=== PATIENT | female | born 1965 | race Caucasian/White ===

== ENCOUNTER 2019-02-20 21:51 | Inpatient (IN) | payer OTHER ==
[2019-02-20 22:06] LABS: ABG Base Excess 0.5 mmol/L; ABG HCO3 25 mmol/L (21-25); ABG Oxygen Saturation 99.5 % (94-97); ABG PCO2 40 mmHg (35-45); ABG PH 7.41 (7.35-7.45); ABG PO2 162 mmHg (83-108); ABG TCO2 26 mmol/L (19-24)
--- NOTE | 2019-02-20 22:21 | P.CNPUL ---
History of Present Illness Consult date: 02/20/19 Reason for consult: dyspnea History of present illness: This is a 53-year-old female patient who was sent over from [facility] emergency department because of respiratory failure. The patient has not seen a physician on a regular basis. She has not had adequate follow-up. She is morbidly obese. She had some increased cough and congestion and she has to bouts of hemoptysis over the past 3 days. She was getting progressively more short of breath and dyspneic and she had also developed increased lower extremity edema. She thought that she may have a fever however this was a subjective fever and it was never documented. No headache. No syncope. No angina. No loss in consciousness. She end up presented herself to the emergency department at the [facility] and she was found to be in a flutter with 2-1 conduction block and heart rate of 160. She was in acute hypoxic respiratory failure. Immediately she was placed on a BiPAP at a pressure of 10/5 cm a full 10. Initially chest x-ray was done that showed CHF with bila teral pleural effusion. This was followed up by CT angiogram of the chest that showed no evidence of any pulmonary embolism. There was bilateral pleural effusion right more than left. There was right midlung atelectasis. There was also complete atelectasis of the right middle lobe and the right lower lobe in addition to cardiomegaly and pulmonary vessel congestion and pulmonary arterial hypertension with septal lines and anasarca type of changes. There was obvious changes consistent with fluid overload and evolving pulmonary edema. The patient was given DuoNeb nebulized treatment. She was given a 10 mg bolus of IV Cardizem and she was placed on 50 mg an hour infusion. Following that she was given 125 mg of Solu-Medrol and she was transferred to [facility] for further evaluation and treatment. Her blood work was noted. The BNP level was elevated in the order of 1500. Her BN was 10 and creatinine of 0.7. INR was 1.4 with a PT of 17.4 and a PTT of 32. Her white cell count at 16.5 with a hemoglobin of 17.1 and platelets of 305. The patient's sodium is at 133. K level is at 4.5. The calcium level is at 8.9. Bilirubin is 1.6. Alkaline phosphatase is 239. First set of cardiac enzyme/troponin was negative. Lactic acid level was at 3.2. Upon further questioning, the patient states that she has not seen a physician on a regular basis. She denies having any history of COPD or asthma. She is a lifetime nonsmoker. Most of any congestion heart failure. [place] No DVTs or pulmonary embolism. No history of any previous respiratory failure. She has had a few bouts of pneumonia as an outpatient basis and they're all treated without any complications. No history of any cardiac disease. She doesn't take any medication on a regular basis. I saw this patient in the ED. She was on a BiPAP. I modified the pressure to a pressure of 14/5 cm of water. I also put an FiO2 of 60%. A blood gas was done and the patient had a pH of 7.4 with a pCO2 of 40 and pO2 162. Reviewed the CAT scan of the chest. Reviewed the chest x-ray that was forwarded from [facility]. The patient is quite short of breath. She has diffuse anasarca with extensive swelling in lower extremities bilaterally. Denies having any chest pain. Her heart is tachycardic despite being on a Cardizem drip at 10 mg an hour. Review of Systems Constitutional: Reports daytime sleepiness, Reports fatigue, Reports fever, Reports weakness, Reports weight gain Eyes: denies as per HPI, denies blurred vision, denies bulging eye, denies decreased vision, denies diplopia, denies discharge, denies dry eye, denies irritation, denies itching, denies pain, denies photophobia, denies loss of peripheral vision, denies loss of vision, denies tunnel vision/blind spots Ears: deny: decreased hearing, ear discharge, earache, tinnitus Ears, nose, mouth and throat: Denies headache, Denies sore throat Breasts: absent: as per HPI, change in shape, gynecomastia, masses, nipple discharge, pain, skin changes, swelling Cardiovascular: Reports decreased exercise tolerance, Reports dyspnea on exertion, Reports edema, Reports shortness of breath Respiratory: Reports cough, Reports cough with sputum, Reports dyspnea, Reports excessive sputum, Reports hemoptysis, Reports wheezing Gastrointestinal: Denies abdominal pain, Denies diarrhea, Denies nausea, Denies vomiting Genitourinary: Denies dysuria, Denies hematuria Menstruation: Reports as per HPI Musculoskeletal: Reports as per HPI Musculoskeletal: bilateral: ankle swelling, absent: ankle pain, ankle stiffness Integumentary: Reports as per HPI Neurological: Denies numbness, Denies weakness Psychiatric: Reports as per HPI Endocrine: Reports as per HPI, Reports fatigue Hematologic/Lymphatic: Reports as per HPI Allergic/Immunologic: Reports as per HPI Past Medical History Past Surgical History: Section, Tonsillectomy Physical Exam Morbidly obese, in [id number] degree of respiratory distress even while on the BiPAP. Head exam was generally normal. There was no scleral icterus or corneal arcus. Mucous membranes were moist. Neck was supple and without jugular venous distension, thyromegaly, or carotid bruits. Carotids were easily palpable bilaterally. There was no adenopathy. Patient has dry mucous membranes and the patient has significant crowding of the posterior oropharynx with a Mallampati class IV. Lung sounds are diminished bilaterally along with left basilar crackles and diffuse rhonchi throughout the lung egan and diffuse extremity wheezes heard throughout the lung egan bilaterally. Heart sounds are tachycardic, irregular, positive S1-S2. No significant murmurs appreciated. Abdomen is morbidly obese. No direct tenderness months or guarding. No ascites that can be palpated. Abdominal exam revealed normal bowel sounds. The abdomen was soft, non-tender, and without masses, organomegaly, or appreciable enlargement of the abdominal aorta. Extremities revealed +1-2 pitting edema. No cyanosis. No clubbing. Neurologic the patient is awake and alert. Although she is anxious but there is no focal neurological deficit. No cranial nerve deficits. She is moving all 4 extremities without any limitation. Examination of the skin revealed no evidence of significant rashes, suspicious appearing nevi or other concerning lesions. Results - Diagnostic Findings Chest x-ray: image reviewed CT scan - chest: image reviewed Assessment and Plan Plan: Assessment 1 acute hypoxic respiratory failure, multifactorial. The patient presents with a left lower lobe pneumonia and signs of decompensated heart failure with bilateral pleural effusion right more than left and early pulmonary edema. In addition, the patient is in a flutter with rapid ventricular response 2 acute BiPAP dependent history failure currently on a pressure of 14/5 cm of water and FiO2 of 60% 3 left lower lobe pneumonia 4 acute decompensated heart failure with bilateral pleural effusions and signs of early pulmonary edema 5 a flutter with rapid response. The patient presents with 2-1 AV block 6 obesity 7 anesthetic with increased lower extremity edema, most likely secondary to CHF. Underlying DVT is felt to be less likely Plan We will admit this patient ICU. Continue BiPAP for respiratory support. Wean down the FiO2 to maintain saturation above 90%. Start the patient on DuoNeb nebulizers [id number]. Start the patient IV Solu Medrol 60 mg every 6 hours. We'll put her on a combination of Levaquin and Zosyn. Influenza screen that was done was negative. Obtain sputum Gram stain and culture. Obtain blood cultures. Obtain an echocardiogram. Start the patient on Lasix 40 mg IV push every 8 hours. Insert a Wilson catheter. The patient will need additional treatment for rate control. The patient is currently on 10 mg of Cardizem and she continues to be in a flutter rhythm. We'll consider amiodarone if there is no significant improvement or any rate control. Start the patient IV heparin per protocol. Continue monitoring cardiac enzymes. Sent thyroid function test. Keep the BiPAP overnight at the same setting. Condition is critical. IV access has been established. The patient be transferred to the intensive care unit. Further recommendations are to follow based on her progress. She will need a cardiology consultation. Time with Patient: Greater than 30
[2019-02-20] MEDS ORDERED: NALOXONE 0.4 MG/ML 1 ML VIAL IV PRN (22:39)
[2019-02-20] MEDS ORDERED: HEPARIN SODIUM,PORCINE 5,000 UNIT/ML 1 ML VIAL IV ONE (22:43)
[2019-02-20] MEDS ORDERED: HEPARIN SODIUM,PORCINE 5,000 UNIT/ML 1 ML VIAL IV PRN (22:43)
[2019-02-20] MEDS ORDERED: HEPARIN SOD,PORK IN 0.45% NACL 25,000 UNIT in 0.45% NACL 1 250ML.BAG IV SCH (22:45)
[2019-02-20] MEDS ORDERED: LEVOFLOXACIN 500MG-D5W PMX 500 MG in DEXTROSE/WATER 1 100ML.BAG IVPB STA (22:49)
--- NOTE | 2019-02-20 22:50 | ED ---
General Adult HPI - General Chief complaint: Shortness of Breath Stated complaint: pneumonia Time Seen by Provider: 02/20/19 21:57 Source: patient, family Mode of arrival: EMS Limitations: no limitations - History of Present Illness Initial comments: Abbie is a 53-year-old female with no significant past medical history because she does not follow with primary care physician and has not been seen by physician and nonbloody number of years. Patient reports she's had a mild cough today she no shoes coughing up some blood which prompted her to go to an outside hospital where she was found to be in A. fib with RVR and respiratory distress. At the outside facility revealed a possible pneumonia as well as heart failure with bilateral pleural effusions patient was found to be in A. fib with RVR and upon being given Cardizem was noted to be in a flutter with a 21 block and a heart rate in the 150s. Patient was treated with fluids, Cardizem, broad spectrum antibiotics - decision was made to hold Heparin due to patients report of hemoptysis. - Related Data Home Medications Medication Instructions Recorded Confirmed No Known Home Medications 02/20/19 02/20/19 Allergies Allergy/AdvReac Type Severity Reaction Status Date / Time bee venom protein (honey bee) Allergy Unknown Verified 02/20/19 23:06 latex Allergy Unknown Verified 02/20/19 23:06 Penicillins Allergy Rash/Hives Verified 02/20/19 23:06 codeine AdvReac Unknown Verified 02/20/19 23:06 Review of Systems ROS Statement: Those systems with pertinent positive or pertinent negative responses have been documented in the HPI. ROS Other: All systems not noted in ROS Statement are negative. Past Medical History Past Medical History: No Reported History History of Any Multi-Drug Resistant Organisms: None Reported Past Surgical History: Appendectomy, Section, Tonsillectomy Past Psychological History: No Psychological Hx Reported Smoking Status: Never smoker Past Alcohol Use History: None Reported Past Drug Use History: None Reported General Exam - General Exam Comments Initial Comments: Physical Exam GENERAL: The obese female in moderate respiratory distress on BiPAP HENT: Normocephalic, Atraumatic. EYES: PERRL, EOMI PULMONARY: Tachypneic, rales bilaterally Decreased breath sounds at bilateral bases CARDIOVASCULAR: Cardiac, regular rate is fixed at 150 ABDOMEN: Morbidly obese soft and nontender SKIN: Skin is clear with no lesions or rashes and otherwise unremarkable. : Deferred NEUROLOGIC: Patient is alert and oriented x3. Moving all extremities spontaneously MUSCULOSKELETAL: Normal extremities with adequate strength and full range of motion. No lower extremity swelling or edema. No calf tenderness. PSYCHIATRIC: Normal psychiatric evaluation. Limitations: no limitations Limitations: no limitations Course Vital Signs 02/20/19 02/20/19 02/21/19 21:57 22:29 00:04 Pulse Rate 151 H 149 H Respiratory 35 H 33 H 25 H Rate Blood Pressure 149/101 146/100 O2 Sat by Pulse 99 98 Oximetry EKG Findings - EKG Comments: EKG Findings:: EKG obtained at 2217, rate is 150 rhythm is atrial flutter with a 2-1 AV conduction, there is normal axis there are normal intervals, QRS 84, QTC [address] elevations or depressions evidence of acute ischemia or infarction Medical Decision Making - Medical Decision Making She care was discussed with the transferring physician. Some morbidly obese 53-year-old female who does not follow with a doctor presenting with atrial flutter and a 2-1 block, acute heart failure respiratory distress and likely pneumonia Patient was on BiPAP and transferred to our facility next upon arrival patient was noted to be on very low-being BiPAP settings were increased Repeat labs were obtained Patient was evaluated by Dr. Durham at bedside who accepts the patient to the ICU - 13 he recommends heparinizing the patient despite the hemoptysis is he reports that it was scant and he feels risk first benefit the patient would benefit from heparin Patient does not have a primary care provider therefore will be admitted to [facility], patient care was discussed with Dr. Chencho Zhang who agrees with workup and treatment as ordered thus far Patient care was discussed with Dr. TONY Stephens cardiology medical oncology physician, Dr. Stephens aware of the atrial flutter 2:1 with HR 150 - skin is options for sedation with cardioversion versus her own, at this time given the patient's respiratory status I do not feel the patient is a good candidate for conscious sedation we will proceed with amiodarone 150 mg bolus followed by amiodarone protocol. Orders were placed Patient was admitted to the ICU - Lab Data Result diagrams: 02/20/19 23:26 02/20/19 23:26 Lab Results 02/20/19 Range/Units 21:57 Sample Site l rad ABG pH 7.41 (7.35-7.45) ABG pCO2 40 (35-45) mmHg ABG pO2 162 H (83-108) mmHg ABG HCO3 25 (21-25) mmol/L ABG Total CO2 26 H (19-24) mmol/L ABG O2 Saturation 99.5 H (94-97) % ABG Base Excess 0.5 mmol/L Philippe Test Yes FiO2 60 % Critical Care Time Critical Care Time: Yes Total Critical Care Time: 30 Critical Care Time: Critical Care Critical care time was exclusive of separately billable procedures and treating other patients. Critical care was necessary to treat or prevent imminent or life-threatening deterioration. Critical care was time spent personally by me on the following activities: development of treatment plan with patient or surrogate, discussions with consultants, discussions with primary provider, evaluation of patient's response to treatment, examination of patient, obtaining history from patient or surrogate, ordering and performing treatments and interventions, ordering and review of laboratory studies, ordering and review of radiographic studies, pulse oximetry, re-evaluation of patient's condition and review of old charts. Disposition Clinical Impression: Congestive heart failure, Acute pulmonary edema, Community acquired pneumonia Disposition: ADMITTED IP TO [facility] Condition: Serious Is patient prescribed a controlled substance at d/c from ED?: No
[2019-02-20] MEDS ORDERED: PIPERACILLIN-TAZOBACTAM 3.375 GM in SODIUM CHLORIDE 0.9% 100 ML IVPB SCH (23:00)
[2019-02-20] MEDS ORDERED: DILTIAZEM 125 MG in SODIUM CHLORIDE 0.9% 100 ML IV SCH (23:00)
[2019-02-20] MEDS ORDERED: ACETAMINOPHEN TAB 325 MG TAB PO PRN (23:27)
[2019-02-20] MEDS ORDERED: DEXTROSE 5% IN WATER 100 ML with AMIODARONE 150 MG IV ONE (23:30)
[2019-02-20] MEDS ORDERED: AMIODARONE 360 MG in DEXTROSE 5% IN WATER 200 ML IV ONE ×2 (23:30)
--- NOTE | 2019-02-20 23:31 | P.HPIM ---
History of Present Illness H&P Date: 02/20/19 Chief Complaint: shortness of breath and cough transferred from [facility] The patient is a morbidly obese 53-year-old female who was transferred to [facility] from [facility] after she presented there earlier today with shortness of breath and cough and was found to be in acute respiratory failure. Apparently the patient presented there with complaints of intermittently productive cough for the last 10 days, with increasing shortness of breath and worsening hemoptysis with blood tinged sputum over the last 2 days with subjective fevers chills and night sweats. The patient reports a sick contact being her [id number] who had URI symptoms 2 weeks ago. The patient denies any chest pain but mentioned palpitations over the last 2 days and intermittent episodes of lightheadedness and reports increasing lower extremity swelling over the last 2 weeks, she denies any syncope. The patient denies any history of smoking, denies history of asthma or COPD. She reports she has not seen a physician in several years At [facility] the patient was noted to be in A. fib flutter with a 2-1 conduction with a rate of 160 and noted to be in hypoxic respiratory failure and was subsequently placed on BiPAP. Workup with chest x-ray indicated CHF with bilateral pleural effusion, subsequent CT angiography of the chest was negative for PE but did indicate right greater than left pleural effusion and right midlung and lower lobe atelectasis with cardiomegaly, pulmonary vascular congestion, pulmonary hypertension. The patient was giving DuoNeb breathing treatment, a bolus of IV Cardizem, loading dose of Solu-Medrol. Review of her labs indicates her BNP was elevated at 1500, INR was 1.4. WBC count 16.5 hemoglobin 17.1 platelet 305, sodium 133 potassium 4.5 and lactate level of 3.2 Review of Systems Pertinent positives per HPI all other review of systems otherwise negative Past Medical History Past Medical History: No Reported History History of Any Multi-Drug Resistant Organisms: None Reported Past Surgical History: Appendectomy, Section, Tonsillectomy Past Psychological History: No Psychological Hx Reported Smoking Status: Never smoker Past Alcohol Use History: None Reported Past Drug Use History: None Reported Medications and Allergies Home Medications Medication Instructions Recorded Confirmed Type No Known Home Medications 02/20/19 02/20/19 History Allergies Allergy/AdvReac Type Severity Reaction Status Date / Time bee venom protein (honey bee) Allergy Unknown Verified 02/20/19 23:06 latex Allergy Unknown Verified 02/20/19 23:06 Penicillins Allergy Rash/Hives Verified 02/20/19 23:06 codeine AdvReac Unknown Verified 02/20/19 23:06 Physical Exam Vitals: Vital Signs Pulse Resp BP Pulse Ox 02/20/19 22:29 151 H 33 H 149/101 99 Intake and Output 02/20/19 02/20/19 02/21/19 14:59 22:59 06:59 Other: Weight 180.7 kg Constitutional: Morbidly obese in mild to moderate distress currently on BiPAP Eyes: Anicteric sclerae, moist conjunctiva, no lid-lag, PERRLA ENMT: NC/AT,Oropharynx clear, no erythema, exudates, dry mucous membranes Neck:Supple, FROM, no masses, or JVD, No carotid bruits; No thyromegaly Lungs: Diminished in the bases with left basilar crackles rhonchi and expiratory wheezes throughout the lungs bilaterally Cardiovascular: Regularly irregular tachycardic No murmurs, gallops, or rubs , +2 bilateral lower extremity pitting edema a Abdominal: Soft Nontender, nom distended, no guarding, no rebound or rigidity, Normoactive bowel sounds No hepatomegaly, No splenomegaly, No palpable mass No abdominal wall hernia noted Skin: Normal temperature, tone, texture, turgor, No induration No subcutaneous nodules, No rash, lesions, No ulcers Extremities:No digital cyanosis No clubbing, Pedal pulses intact and symmetrical Radial pulses intact and symmetrical Normal gait and station, No calf tenderness Psychiatric: Alert and oriented to person, place and time, Appropriate affect Intact judgement Neuro: Muscles Strength 5/5 in all 4 extremities, Sensation to light touch grossly present throughout, Cranial nerves II-XII grossly intact. No focal sensory deficits Results Labs: Abnormal Lab Results - Last 24 Hours (Table) 02/20/19 Range/Units 21:57 ABG pO2 162 H (83-108) mmHg ABG Total CO2 26 H (19-24) mmol/L ABG O2 Saturation 99.5 H (94-97) % Assessment and Plan (1) Sepsis Current Visit: Yes Status: Acute Code(s): A41.9 - SEPSIS, UNSPECIFIED ORGANISM SNOMED Code(s): 10962262 (2) Acute respiratory failure with hypoxia Current Visit: Yes Status: Acute Code(s): J96.01 - ACUTE RESPIRATORY FAILURE WITH HYPOXIA SNOMED Code(s): 11625150 (3) Acute exacerbation of CHF (congestive heart failure) Current Visit: Yes Status: Acute Code(s): I50.9 - HEART FAILURE, UNSPECIFIED SNOMED Code(s): 50070606 (4) Community acquired pneumonia Current Visit: Yes Status: Acute Code(s): J18.9 - PNEUMONIA, UNSPECIFIED ORGANISM SNOMED Code(s): 089877301 (5) Atrial flutter Current Visit: Yes Status: Acute Code(s): I48.92 - UNSPECIFIED ATRIAL FLUTTER SNOMED Code(s): 8253185 (6) Hyponatremia Current Visit: Yes Status: Acute Code(s): E87.1 - HYPO-OSMOLALITY AND HYPONATREMIA SNOMED Code(s): 13410810 Plan: The patient is admitted anticipated greater than 2 midnight stay with acute respiratory failure with hypoxia multifactorial etiology secondary to sepsis due to community-acquired pneumonia superimposed on likely acute CHF exacerbation with pleural effusions that are either parapneumonic versus due to CHF . The patient is normotensive but is in A. a flutter with 2-1 conduction of a rate of 150, we'll continue Cardizem drip continue IV heparin for anticoagulation and stroke prophylaxis, plan to consult cardiology with plans for echocardiogram. The patient is continued on IV Lasix 40 mg IV q 8 for diuresis, strict I's and O's. We'll defer to pulmonary regarding BiPAP management, patient currently reports her breathing is improved on BiPAP 12/11 fi02 60%. The patient is continued on empiric IV antibiotics with Zosyn and Levaquin, blood cultures are pending, will add sputum culture and urinalysis. Continue with supportive therapy with breathing treatments. I will continue to follow her clinical cour se CODE STATUS : Full code Discussed plan of care with: Patient and her Rodger Anticipated discharge: 3-5 days Prophylaxis: Heparin and Protonix Time with Patient: Greater than 30
[2019-02-20 23:37] LABS: Basophils % (A) 0 %; Eosinophils # (A) 0.1 k/uL (0-0.7); Eosinophils % (A) 0 %; HGB 16.6 gm/dL (11.4-16.0); Hypochromasia Marked; Lymphocytes # (A) 0.8 k/uL (1.0-4.8); Lymphocytes % (A) 5 %; MCHC 29.1 g/dL (31.0-37.0); MCV 96.1 fL (80.0-100.0); Mean Platelet Volume 7.5; Monocytes # (A) 0.6 k/uL (0-1.0); Monocytes % (A) 4 %; Neutrophils # (A) 14.2 k/uL (1.3-7.7); Neutrophils % (A) 90 %; Platelet Count 252 k/uL (150-450); RBC 5.93 m/uL (3.80-5.40); RDW 14.4 % (11.5-15.5); WBC 15.7 k/uL (3.8-10.6)
[2019-02-20 23:45] LABS: INR 1.6 (<1.2); Partial Thromboplastin Time 27.8 sec (22.0-30.0); Prothrombin Time 15.8 sec (9.0-12.0)
[2019-02-20 23:56] LABS: ALT 29 U/L (9-52); AST 31 U/L (14-36); Albumin 3.7 g/dL (3.5-5.0); Alkaline Phosphatase 241 U/L (38-126); Anion Gap 12 mmol/L; Blood Urea Nitrogen 11 mg/dL (7-17); Calcium 8.9 mg/dL (8.4-10.2); Carbon Dioxide 21 mmol/L (22-30); Chloride 104 mmol/L (98-107); Glucose 158 mg/dL (74-99); Potassium 4.9 mmol/L (3.5-5.1); Sodium 137 mmol/L (137-145); Total Bilirubin 1.9 mg/dL (0.2-1.3); Total Protein 7.7 g/dL (6.3-8.2)
[2019-02-21 01:38] LABS: Glucose,Whole Blood 156 mg/dL (75-99)
[2019-02-21 02:25] VITALS: BMI 63.2
[2019-02-21] MEDS: FUROSEMIDE 10 MG/ML 4 ML VIAL IV SCH ×3 (03:04→16:17)
[2019-02-21] MEDS: methylPREDNISolone SOD SUCCI 125 MG/2 ML VIAL IV SCH ×4 (03:04→18:08)
[2019-02-21 05:20] LABS: Anion Gap 10 mmol/L; Blood Urea Nitrogen 13 mg/dL (7-17); Carbon Dioxide 24 mmol/L (22-30); Chloride 102 mmol/L (98-107); Glucose 166 mg/dL (74-99); Potassium 4.8 mmol/L (3.5-5.1); Sodium 136 mmol/L (137-145)
[2019-02-21 05:28] LABS: Basophils % (A) 0 %; Eosinophils # (A) 0.1 k/uL (0-0.7); Eosinophils % (A) 0 %; HCT 53.8 % (34.0-46.0); HGB 16.1 gm/dL (11.4-16.0); Hypochromasia Marked; Lymphocytes % (A) 8 %; MCH 28.7 pg (25.0-35.0); MCHC 29.9 g/dL (31.0-37.0); MCV 95.9 fL (80.0-100.0); Mean Platelet Volume 8.4; Monocytes # (A) 0.7 k/uL (0-1.0); Monocytes % (A) 5 %; Neutrophils # (A) 11.6 k/uL (1.3-7.7); Neutrophils % (A) 86 %; Platelet Count 292 k/uL (150-450); RBC 5.61 m/uL (3.80-5.40); RDW 15.1 % (11.5-15.5); WBC 13.5 k/uL (3.8-10.6)
[2019-02-21] MEDS: IPRATROPIUM-ALBUTEROL 3 ML NEB INHALATION PRN ×4 (05:52→18:57)
[2019-02-21] MEDS: BUDESONIDE 0.5 MG/2 ML NEBU INHALATION SCH ×2 (05:52→18:58)
[2019-02-21] MEDS ORDERED: HEPARIN SODIUM,PORCINE 5,000 UNIT/ML 1 ML VIAL IV STA (06:26)
[2019-02-21] MEDS: AMIODARONE 300 MG in DEXTROSE 5% IN WATER 250 ML IV SCH ×4 (07:00→18:08)
[2019-02-21 07:39] LABS: Appearance,Urine Clear (Clear); Color,Urine Amber
[2019-02-21 07:40] LABS: Bilirubin,Urine Negative (Negative); Blood,Urine Negative (Negative); Glucose,Urine (UA) Negative (Negative); Ketones,Urine Negative (Negative); Protein,Urine 2+ (Negative); Urobilinogen,Urine <2.0 mg/dL (<2.0)
[2019-02-21 07:41] LABS: Leukocyte Esterase,Urine Negative (Negative); Nitrite,Urine Negative (Negative)
[2019-02-21 08:02] LABS: RBC,Urine 6 /hpf (0-5)
--- NOTE | 2019-02-21 08:33 | XR ---
EXAMINATION TYPE: XR chest 1V portable DATE OF EXAM: 02/21/2019 COMPARISON: 02/20/2019 HISTORY: Shortness of breath TECHNIQUE: Single frontal view of the chest is obtained. FINDINGS: Bilateral consolidation and pleural effusion greater on the right. Heart is enlarged. No p neumothorax. IMPRESSION: Bilateral infiltrate and pleural effusion are noted. Correlate for pneumonia versus CHF.
[2019-02-21] MEDS ORDERED: PANTOPRAZOLE 40 MG/10 ML VIAL IVP SCH (09:00)
--- NOTE | 2019-02-21 10:03 | P.PN ---
Subjective Progress Note Date: 02/21/19 Principal diagnosis: dyspnea Patient is a 53-year-old female with no known past medical history she has not been seeing physicians who initially presented to [facility] secondary to shortness of breath and cough. I requested she underwent an extensive evaluation. She was found to have tachycardia and her EKG was consistent with atrial flutter with a 2-1 conduction at a rate of 160. She was also found to be hypoxic and was subsequently started on BiPAP therapy. Chest x-ray indicated CHF with bilateral pleural effusions right greater than left. She subsequently underwent a CT of the chest was negative for PE but did show significant multilobar pneumonia. She was started on DuoNeb's, Cardizem bolus followed by a drip, and Solu-Medrol. Laboratory analysis showed an elevated BNP, INR 1.4, white blood cell count 16.5, lactic acid of 3.2, and remainder of lab work was unremarkable. Due to her already at condition and need for BiPAP therapy she was subsequently transferred to [facility]. She is seen by critical care and admitted to the ICU. She remained tachycardic overnight despite the use of IV Cardizem and she was transitioned to amiodarone. She was started on DuoNeb therapy, IV Lasix, heparin drip, and IV steroids. She was also given a dose of Levaquin and Zosyn. Patient remianed on BiPAP. Patient seen and examined at [facility] in the ICU. She remains on BiPAP therapy. She is able to converse easily. She states she is feeling much better than yesterday. Breathing is much easier. She does still feel slight palpitations. She denies any overt chest pain, lightheadedness, or dizziness. Not having any nausea or vomiting. He diarrhea or constipation. No other complaints currently. Objective - Vital Signs Vital signs: Vital Signs Temp 96.4 F L 02/21/19 08:00 Pulse 142 H 02/21/19 09:00 Resp 18 02/21/19 09:00 BP 96/57 02/21/19 09:00 Pulse Ox 97 02/21/19 09:00 Intake & Output 02/20/19 02/21/19 02/21/19 18:59 06:59 18:59 Intake Total 250 75.333 Output Total 280 120 Balance -30 -44.667 Weight 177.7 kg Intake: Amount of Fluid Infused ( 250 ml) Intake, IV Titration 75.333 Amount Heparin Sod,Pork in 0.45% 75.333 NaCl 25,000 unit In 0.45 % NaCl 1 250ml.bag @ 10 mls/hr IV .Q24H [facility] Rx#: [id number] Output: Urine 280 120 Other: Voiding Method Indwelling Catheter - Exam General: Ill-appearing, moderate distress, appears older than stated age, morbidly obese, malodorous Derm: Erythema with serous drainage and white plaquing bilateral pannus, warm, dry Head: atraumatic, normocephalic, symmetric Eyes: EOMI, no lid lag, anicteric sclera Mouth: no lip lesion, mucus membranes moist Cardiovascular: S1S2 irregular tachycardia, no murmur, positive posterior tibial pulse bilateral, Lungs: Wheeze bilateral , no accessory muscle use Abdominal: soft, nontender to palpation, no guarding, no appreciable organomegaly Ext: no gross muscle atrophy, 3+ edema, no contractures Neuro: CN II-XI grossly intact, no focal neuro deficits Psych: Alert, oriented, appropriate affect - Labs CBC & Chem 7: 02/21/19 04:36 02/21/19 04:36 Labs: Abnormal Lab Results - Last 24 Hours (Table) 02/20/19 02/20/19 02/20/19 Range/Units 21:57 23:26 23:26 WBC 15.7 H (3.8-10.6) k/uL RBC 5.93 H (3.80-5.40) m/uL Hgb 16.6 H (11.4-16.0) gm/dL Hct 57.0 H (34.0-46.0) % MCHC 29.1 L (31.0-37.0) g/dL Neutrophils # 14.2 H (1.3-7.7) k/uL Lymphocytes # 0.8 L (1.0-4.8) k/uL PT 15.8 H (9.0-12.0) sec INR 1.6 H (<1.2) APTT (22.0-30.0) sec ABG pO2 162 H (83-108) mmHg ABG Total CO2 26 H (19-24) mmol/L ABG O2 Saturation 99.5 H (94-97) % Sodium (137-145) mmol/L Carbon Dioxide (22-30) mmol/L Creatinine (0.52-1.04) mg/dL Glucose (74-99) mg/dL POC Glucose (mg/dL) (75-99) mg/dL Total Bilirubin (0.2-1.3) mg/dL Alkaline Phosphatase (38-126) U/L Urine RBC (0-5) /hpf 02/20/19 02/21/19 02/21/19 Range/Units 23:26 01:26 03:30 WBC (3.8-10.6) k/uL RBC (3.80-5.40) m/uL Hgb (11.4-16.0) gm/dL Hct (34.0-46.0) % MCHC (31.0-37.0) g/dL Neutrophils # (1.3-7.7) k/uL Lymphocytes # (1.0-4.8) k/uL PT (9.0-12.0) sec INR (<1.2) APTT (22.0-30.0) sec ABG pO2 (83-108) mmHg ABG Total CO2 (19-24) mmol/L ABG O2 Saturation (94-97) % Sodium (137-145) mmol/L Carbon Dioxide 21 L (22-30) mmol/L Creatinine 0.50 L (0.52-1.04) mg/dL Glucose 158 H (74-99) mg/dL POC Glucose (mg/dL) 156 H (75-99) mg/dL Total Bilirubin 1.9 H (0.2-1.3) mg/dL Alkaline Phosphatase 241 H (38-126) U/L Urine RBC 6 H (0-5) /hpf 02/21/19 02/21/19 02/21/19 Range/Units 04:36 04:36 04:36 WBC 13.5 H (3.8-10.6) k/uL RBC 5.61 H (3.80-5.40) m/uL Hgb 16.1 H (11.4-16.0) gm/dL Hct 53.8 H (34.0-46.0) % MCHC 29.9 L (31.0-37.0) g/dL Neutrophils # 11.6 H (1.3-7.7) k/uL Lymphocytes # (1.0-4.8) k/uL PT (9.0-12.0) sec INR (<1.2) APTT 31.9 H (22.0-30.0) sec ABG pO2 (83-108) mmHg ABG Total CO2 (19-24) mmol/L ABG O2 Saturation (94-97) % Sodium 136 L (137-145) mmol/L Carbon Dioxide (22-30) mmol/L Creatinine (0.52-1.04) mg/dL Glucose 166 H (74-99) mg/dL POC Glucose (mg/dL) (75-99) mg/dL Total Bilirubin (0.2-1.3) mg/dL Alkaline Phosphatase (38-126) U/L Urine RBC (0-5) /hpf Assessment and Plan Assessment: Pneumonia with bilateral pleural effusions -Levaquin therapy -Pulmonary hygiene -Sputum culture as able -Bronchodilators -IV steroids secondary to significant wheezing -Follow chest x-ray until clear -Pulmonary recommendations appreciated Probable acute exacerbation of congestive heart failure -Continue with Lasix therapy -Echocardiogram -Await cardiology recommendations -Strict I's and O's, daily weight Atrial flutter with rapid ventricular response -Failed Cardizem drip, currently on amiodarone -Per nursing cardio considering BUSHRA with cardioversion today -Continue with heparin drip -Will be difficult to obtain medications for patient secondary to no insurance Acute hypoxic respiratory failure secondary to above -BiPAP therapy as needed -Decreased O2 supplementation as able -Pulmonary recommendations Gross hematuria - likely related to urbano and heparin gtt - continue to monitor - flush urbano as needed Cutaneous candidiasis - keep area clean and dry - nystatin therapy Morbid obesity with BMI 63.2 -Outpatient structured weight loss Social stressor, no insurance -Social work consultation DVT prophylaxis: Heparin gtt Discussed with: Patient, nursing Anticipated discharge: 4-[address]: home A total of 45 minutes was spent on the care of this complex patient more than 50% of the time was spent in counseling and care coordination.
[2019-02-21] MEDS ORDERED: ROCURONIUM BROMIDE 10 MG/ML 10 ML VIAL IV ONE (10:22)
[2019-02-21] MEDS ORDERED: MIDAZOLAM 1 MG/ML 5 ML VIAL ONE (10:22)
[2019-02-21] MEDS ORDERED: ETOMIDATE 2 MG/ML 10 ML VIAL ONE ×2 (10:22→13:53)
[2019-02-21] MEDS: NYSTATIN 100,000 UNIT/GM POWD 15 GM TOPICAL SCH ×2 (11:11→16:17)
--- NOTE | 2019-02-21 11:28 | ECHOF ---
Referral Reason:heart failure MEASUREMENTS -------- HEIGHT: 167.6 cm WEIGHT: 177.3 kg BP: 129/100 RVIDd: 3.2 cm (< 3.3) IVSd: 1.3 cm (0.6 - 1.1) LVIDd: 4.7 cm (3.9 - 5.3) LVPWd: 1.2 cm (0.6 - 1.1) IVSs: 1.5 cm LVIDs: 3.7 cm LVPWs: 1.6 cm LA Diam: 3.4 cm (2.7 - 3.8) LAESV Index (A-L): 18.40 ml/m Ao Diam: 2.8 cm (2.0 - 3.7) MV EXCURSION: 14.751 mm (> 18.000) MV EF SLOPE: 160 mm/s (70 - 150) EPSS: 0.7 cm MV E Gerber: 1.07 m/s MV DecT: 101 ms MV A Gerber: 0.41 m/s MV E/A Ratio: 2.62 RAP: 15.00 mmHg RVSP: 38.89 mmHg FINDINGS -------- Resting tachycardia (HR>100bpm). This was a technically difficult study with suboptimal views. The left ventricular size is normal. There is mild concentric left ventricular hypertrophy. There is severe global hypokinesis of LV . Overall left ventricular systolic function is severely impair ed with, an EF between 20 - 25 %. The right ventricle is normal in size. Normal LA size by volume 22+/-6 ml/m2. The right atrium is normal in size. 5 ml of Lumason was utilized for enhancement of images. The aortic valve is trileaflet and appears structurally normal. The mitral valve leaflets are mildly thickened. Severe mitral annular calcification present. Mild mitral regurgitation is present. Mild tricuspid regurgitation present. There is mild pulmonary hypertension. The right ventricular systolic pressure, as measured by Doppler, is 38.89mmHg. Trace/mild (physiologic) pulmonic regurgitation. The aortic root size is normal. The hepatic veins were not well visualized. There is no pericardial effusion. CONCLUSIONS -------- 1. Resting tachycardia (HR>100bpm). 2. This was a technically difficult study with suboptimal views. 3. The left ventricular size is normal. 4. There is mild concentric left ventricular hypertrophy. 5. There is severe global hypokinesis of LV . 6. Overall left ventricular systolic function is severely impaired with, an EF between 20 - 25 %. 7. The right ventricle is normal in size. 8. Normal LA size by volume 22+/-6 ml/m2. 9. The right atrium is normal in size. 10. 5 ml of Lumason was utilized for enhancement of images. 11. The aortic valve is trileaflet and appears structurally normal. 12. The mitral valve leaflets are mildly thickened. 13. Severe mitral annular calcification present. 14. Mild mitral regurgitation is present. 15. Mild tricuspid regurgitation present. 16. There is mild pulmonary hypertension. 17. The right ventricular systolic pressure, as measured by Doppler, is 38.89mmHg. 18. Trace/mild (physiologic) pulmonic regurgitation. 19. The aortic root size is normal. 20. The hepatic veins were not well visualized. 21. There is no pericardial effusion. PATCH DRILLER: Amy Mayo RDCS
--- NOTE | 2019-02-21 12:15 | P.PN ---
Subjective Progress Note Date: 02/21/19 Principal diagnosis: Acute hypoxic respiratory failure secondary to community-acquired pneumonia, diastolic congestive heart failure, atrial flutter/fibrillation with RVR This is a 53-year-old female patient who was sent over from [facility] emergency department because of respiratory failure. The patient has not seen a physician on a regular basis. She has not had adequate follow-up. She is morbidly obese. She had some increased cough and congestion and she has to b outs of hemoptysis over the past 3 days. She was getting progressively more short of breath and dyspneic and she had also developed increased lower extremity edema. She thought that she may have a fever however this was a subjective fever and it was never documented. No headache. No syncope. No angina. No loss in consciousness. She end up presented herself to the emergency department at the [facility] and she was found to be in a flutter with 2-1 conduction block and heart rate of 160. She was in acute hypoxic respiratory failure. Immediately she was placed on a BiPAP at a pressure of 10/5 cm a full 10. Initially chest x-ray was done that showed CHF with bilateral pleural effusion. This was followed up by CT angiogram of the chest that showed no evidence of any pulmonary embolism. There was bilateral pleural effusion right more than left. There was right midlung atelectasis. There was also complete atelectasis of the right middle lobe and the right lower lobe in addition to cardiomegaly and pulmonary vessel congestion and pulmonary arterial hypertension with septal lines and anasarca type of changes. There was obvious changes consistent with fluid overload and evolving pulmonary edema. The patient was given DuoNeb nebulized treatment. She was given a 10 mg bolus of IV Cardizem and she was placed on 50 mg an hour infusion. Following that she was given 125 mg of Solu-Medrol and she was transferred to [facility] for further evaluation and treatment. Her blood work was noted. The BNP level was elevated in the order of 1500. Her BN was 10 and creatinine of 0.7. INR was 1.4 with a PT of 17.4 and a PTT of 32. Her white cell count at 16.5 with a hemoglobin of 17.1 and platelets of 305. The patient's sodium is at 133. K level is at 4.5. The calcium level is at 8.9. Bilirubin is 1.6. Alkaline phosphatase is 239. First set of cardiac enzyme/troponin was negative. Lactic acid level was at 3.2. Upon further questioning, the patient states that she has not seen a physician on a regular basis. She denies having any history of COPD or asthma. She is a lifetime nonsmoker. Most of any congestion heart failure. [place] No DVTs or pulmonary embolism. No history of any previous respiratory failure. She has had a few bouts of pneumonia as an outpatient basis and they're all treated without any complications. No history of any cardiac disease. She doesn't take any medication on a regular basis. I saw this patient in the ED. She was on a BiPAP. I modified the pressure to a pressure of 14/5 cm of water. I also put an FiO2 of 60%. A blood gas was done and the patient had a pH of 7.4 with a pCO2 of 40 and pO2 162. Reviewed the CAT scan of the chest. Reviewed the chest x-ray that was forwarded from [facility]. The patient is quite short of breath. She has diffuse anasarca with extensive swelling in lower extremities bilaterally. Denies having any chest pain. Her heart is tachycardic despite being on a Cardizem drip at 10 mg an hour. Patient was reevaluated today on 02/21/2019, remains in the ICU, she is on amiodarone drip, remains in atrial flutter rate of 140. Patient is responding well to diuretics, she is making good urine output roughly about 75 mL per hour, she is on Lasix at 40 mg IV push every 8 hours. She is also empirically on antibiotics, and no further episodes of hemoptysis. Patient presented with pneumonia, congestive heart failure, and atrial flutter with RVR. She was noted to have diffuse anasarca and her chest x-ray showed evidence of pulmonary edema, cannot rule out underlying pneumonia. Patient is undergoing BUSHRA today, if no clots noted, patient may even undergo cardioversion. Her labs were reviewed CBC is relatively normal WBC count is 13.5, hemoglobin is 16.1. Electrolytes were noted to be relatively normal. Normal. Renal profile. Patient is now on high flow nasal cannula at 15 L/m. She is also on amiodarone drip, and on heparin drip. Objective - Vital Signs Vital signs: Vital Signs Temp 96.4 F L 02/21/19 08:00 Pulse 144 H 02/21/19 12:05 Resp 22 02/21/19 11:00 BP 120/95 02/21/19 11:00 Pulse Ox 96 02/21/19 11:00 Intake & Output 02/20/19 02/21/19 02/21/19 18:59 06:59 18:59 Intake Total 250 75.333 Output Total 280 165 Balance -30 -89.667 Weight 177.7 kg 177.7 kg Intake: Amount of Fluid Infused ( 250 ml) Intake, IV Titration 75.333 Amount Heparin Sod,Pork in 0.45% 75.333 NaCl 25,000 unit In 0.45 % NaCl 1 250ml.bag @ 10 mls/hr IV .[facility]H [facility] Rx#: [id number] Output: Urine 280 165 Other: Voiding Method Indwelling Catheter Indwelling Catheter - Exam Physical Exam: Revealed a 53-year-old female, morbidly obese, on high flow nasal cannula, in no distress at present. Head: Atraumatic, normocephalic. HEENT:[Neck is supple.] [No neck masses.] [No thyromegaly.] [No JVD.] PERRLA, EOMI, no icterus. Mallampati class IV. Chest: [Crackles, and rhonchi noted at the bases.] No chest wall tenderness, symmetrical chest expansion noted. Cardiac Exam: [Tachycardic, rhythm strip is showing atrial flutter rate of 140. Normal S1 and S2, no S3 gallop, no murmur.] Abdomen: [Soft, nontender, no megaly, no rebound, no guarding, normal bowel sounds.] Significant abdominal wall edema is noted. Extremities: [No clubbing, 3+ bipedal edema, no cyanosis.] Neurological Exam: [No focal neurologic deficit.] Alert oriented 3. Psychiatric: Normal mood affect and mental status examination. Lymphatics: No lymphadenopathy. Skin: No rashes. - Labs CBC & Chem 7: 02/21/19 04:36 02/21/19 04:36 Labs: Abnormal Lab Results - Last 24 Hours (Table) 02/20/19 02/20/19 02/20/19 Range/Units 21:57 23:26 23:26 WBC 15.7 H (3.8-10.6) k/uL RBC 5.93 H (3.80-5.40) m/uL Hgb 16.6 H (11.4-16.0) gm/dL Hct 57.0 H (34.0-46.0) % MCHC 29.1 L (31.0-37.0) g/dL Neutrophils # 14.2 H (1.3-7.7) k/uL Lymphocytes # 0.8 L (1.0-4.8) k/uL PT 15.8 H (9.0-12.0) sec INR 1.6 H (<1.2) APTT (22.0-30.0) sec ABG pO2 162 H (83-108) mmHg ABG Total CO2 26 H (19-24) mmol/L ABG O2 Saturation 99.5 H (94-97) % Sodium (137-145) mmol/L Carbon Dioxide (22-30) mmol/L Creatinine (0.52-1.04) mg/dL Glucose (74-99) mg/dL POC Glucose (mg/dL) (75-99) mg/dL Total Bilirubin (0.2-1.3) mg/dL Alkaline Phosphatase (38-126) U/L Urine RBC (0-5) /hpf 02/20/19 02/21/19 02/21/19 Range/Units 23:26 01:26 03:30 WBC (3.8-10.6) k/uL RBC (3.80-5.40) m/uL Hgb (11.4-16.0) gm/dL Hct (34.0-46.0) % MCHC (31.0-37.0) g/dL Neutrophils # (1.3-7.7) k/uL Lymphocytes # (1.0-4.8) k/uL PT (9.0-12.0) sec INR (<1.2) APTT (22.0-30.0) sec ABG pO2 (83-108) mmHg ABG Total CO2 (19-24) mmol/L ABG O2 Saturation (94-97) % Sodium (137-145) mmol/L Carbon Dioxide 21 L (22-30) mmol/L Creatinine 0.50 L (0.52-1.04) mg/dL Glucose 158 H (74-99) mg/dL POC Glucose (mg/dL) 156 H (75-99) mg/dL Total Bilirubin 1.9 H (0.2-1.3) mg/dL Alkaline Phosphatase 241 H (38-126) U/L Urine RBC 6 H (0-5) /hpf 02/21/19 02/21/19 02/21/19 Range/Units 04:36 04:36 04:36 WBC 13.5 H (3.8-10.6) k/uL RBC 5.61 H (3.80-5.40) m/uL Hgb 16.1 H (11.4-16.0) gm/dL Hct 53.8 H (34.0-46.0) % MCHC 29.9 L (31.0-37.0) g/dL Neutrophils # 11.6 H (1.3-7.7) k/uL Lymphocytes # (1.0-4.8) k/uL PT (9.0-12.0) sec INR (<1.2) APTT 31.9 H (22.0-30.0) sec ABG pO2 (83-108) mmHg ABG Total CO2 (19-24) mmol/L ABG O2 Saturation (94-97) % Sodium 136 L (137-145) mmol/L Carbon Dioxide (22-30) mmol/L Creatinine (0.52-1.04) mg/dL Glucose 166 H (74-99) mg/dL POC Glucose (mg/dL) (75-99) mg/dL Total Bilirubin (0.2-1.3) mg/dL Alkaline Phosphatase (38-126) U/L Urine RBC (0-5) /hpf Assessment and Plan Assessment: Impression: 1 acute hypoxic respiratory failure, strongly suspect congestive heart failure likely diastolic in nature, biventricular, and suspect underlying pneumonia. This would be a community-acquired pneumonia based on the clinical history. 2 left lower lobe pneumonia/community acquired. 3 atrial flutter with 2-1 AV block. 4 morbid obesity 5 biventricular heart failure 6 hemoptysis secondary to pneumonia. Recommendation: Continue to monitor the patient in the ICU, she is presently off BiPAP and on high flow nasal cannula. Titrate O2 accordingly to keep the saturation above 90%. Continue antibiotics, diuretics, steroids, she is pres ently on Levaquin and Zosyn. Influenza screen was noted to be negative. The blood cultures are negative so far. BUSHRA is scheduled to be done today. Continue heparin, her thyroid profile is pending, condition today he seems to be less critical than yesterday, but nonetheless the patient requires to stay in the ICU. We'll continue to follow. Time with Patient: Less than 30
[2019-02-21] MEDS ORDERED: BENZOCAINE SPRAY 1 CAN MUCOUS MEM PRN (13:53)
[2019-02-21] MEDS ORDERED: ESMOLOL 100 MG/10 ML VIAL ONE (13:53)
[2019-02-21] MEDS ORDERED: METOPROLOL TARTRATE 5 MG/5 ML VIAL IVP ONE (14:07)
[2019-02-21] MEDS ORDERED: DEXTROSE 5% IN WATER 100 ML with AMIODARONE 150 MG IV ONE (14:08)
[2019-02-21] MEDS ORDERED: DIGOXIN 250 MCG/ML 2 ML AMP IVP STA (14:24)
[2019-02-21] MEDS ORDERED: ESMOLOL IN SODIUM CHLORIDE PMX 2.5 GM in SALINE 1 250ML.BAG IV SCH (14:30)
[2019-02-21] MEDS ORDERED: ADENOSINE 3 MG/ML 2 ML VIAL IVP STA ×2 (14:41)
[2019-02-21] MEDS ORDERED: ADENOSINE 3 MG/ML 2 ML VIAL IVP ONE (14:43)
--- NOTE | 2019-02-21 14:56 | ECHOT ---
TRANSESOPHAGEAL ECHOCARDIOGRAM This transesophageal echocardiogram was performed to rule out any cardiac thrombi prior to the cardioversion. Patient has a history of atrial flutter with rapid rate and evidence of cardiomyopathy by transthoracic echocardiogram. The patient was given intravenous sedation by nurse optical engineer and transesophageal echocardiogram was performed without any complications. The left ventricular chamber is normal in size with global hypokinesia. Aortic wall is mildly thickened. Mitral and tricuspid valve morphology is normal. There was a mild degree of mitral and tricuspid regurgitation. There was no evidence of thrombus in left atrium or atrial appendage. Interatrial septum is clear. FINAL IMPRESSION: There is no evidence of thrombus in left atrium or atrial appendage or left ventricular apex, RECOMMENDATIONS: Proceed with cardioversion. CARDIOVERSION: PREOPERATIVE DIAGNOSIS: Atrial flutter with rapid ventricular rate and cardiomyopathy. POSTOPERATIVE DIAGNOSIS: Atrial flutter with rapid ventricular rate and cardiomyopathy. Patient was given intravenous sedation by nurse optical engineer and then patient was cardioverted in synchronous mode with 360 joules to normal sinus rhythm. Patient temporarily converted back into the atrial flutter with a rapid rate. However, within in a few seconds, she converted back to the normal sinus rhythm and she is being maintained in the normal sinus rhythm. Patient will be received additional dose of amiodarone bolus of amiodarone 150 mg over half an hour. The patient's vital signs remained stable. She tolerated the procedure well. This was discussed with the patient's . FABRICIO / CINDY: [id number] /
--- NOTE | 2019-02-21 15:05 | CONS ---
CONSULTATION This is a 53-year-old morbidly obese lady who was actually transferred last night from [facility] to [facility] Emergency Room. Apparently, she has not seen a physician for at least 5-7 years. And prior to that also, she was not consistent. She came in to [facility] with complaints of increasing shortness of breath, cough, productive sputum, and also had some palpitations. She was found to have a possible pneumonia, heart failure and also atrial fibrillation with RVR. She was transferred from [facility] to [facility] after arrival, EKG suggested a flutter with a 2:1 block. She was given Cardizem without improvement. She has then been placed on heparin and after discussion with me, I initiated amiodarone drip yesterday. She has probably underlying sleep apnea but she does not take any medications. PAST MEDICAL HISTORY: Remarkable for obesity. She is status post section, tonsillectomy. She has no history of any hypertension, diabetes, myocardial infarction or CVA. ALLERGIES: She is allergic to PENICILLIN and CODEINE. MEDICATIONS: None. It is possible she may have sleep apnea. She snores a lot and also required BiPAP through the night. After her arrival to the hospital, she has been placed on amiodarone drip and then placed on BiPAP, with this she showed some improvement. Heparin has been initiated and this morning she seems to be in a flutter with 2:1 conduction. The rate is about 130- 140 per minute. Clinically, patient is in heart failure and has been initiated on some Lasix as well. PHYSICAL EXAMINATION: Blood pressure is 130/80, pulse rate is about 136 per minute HEENT unremarkable fundus was not examined by me. Neck is supple. JVD is evident. Heart exam reveals S1, S2 with tachycardia. Distant heart sounds, Lungs reveal diminished air entry. Bilateral lung egan. Abdomen is distended. Lower extremities reveal diminished pulses, trace by a couple of mild bilateral lower extremity edema. Central nervous system grossly within normal limits. EKG revealed atrial flutter with 2 is 2 1 block. Heart rate about 150 per minute. IMPRESSION: 1. Atrial flutter with a 2 is 2 1 block. 2. Probable underlying sleep apnea syndrome. 3. Probable systolic heart failure clinically. 4. Morbid obesity. 5. Apparently a pulmonary embolism under was ruled out at [facility]. RECOMMENDATION: I am recommending that we obtain an echocardiogram and consider a transesophageal echo and electrical cardioversion. I discussed my thoughts in detail with the patient, explained her the rationale, risks, benefits, options. I told the success rate of 60- 70 percent. We will continue diuresis and electrolyte management and heparinization for now. We will switch her from IV to oral amiodarone. I discussed my thoughts in detail with the patient. Thank you very much for the consult indication. FABRICIO / CINDY: [id number] /
--- NOTE | 2019-02-21 17:05 | XR ---
EXAMINATION: XR chest 1V portable DATE AND TIME: 02/21/2019 4:21 PM CLINICAL INDICATION: PHH; SOB TECHNIQUE: Departmental protocol COMPARISON: 02/21/2019 at 6:03 AM FINDINGS: The previously seen bilateral pleural effusions and airlessness within the lower lobes is redemonstra osman, greater on the right. These prominent findings are similar in appearance when compared the prior study. There is no new process. The mid and upper lung zones appear clear bilaterally. No pneumothorax. EKG leads. Moderately-enlarged cardiac silhouette redemonstrated. IMPRESSION: NO INTERVAL CHANGE; STABLE BIBASILAR FINDINGS.
[2019-02-21] MEDS ORDERED: FUROSEMIDE 100 MG in SODIUM CHLORIDE 0.9% 90 ML IV SCH (17:45)
[2019-02-21 17:48] LABS: ABG Base Excess -7.9 mmol/L; ABG HCO3 19 mmol/L (21-25); ABG Oxygen Saturation 99.8 % (94-97); ABG PCO2 42 mmHg (35-45); ABG PH 7.27 (7.35-7.45); ABG PO2 265 mmHg (83-108); ABG TCO2 20 mmol/L (19-24)
[2019-02-21] MEDS ORDERED: FUROSEMIDE 10 MG/ML 10 ML VIAL IV STA (17:51)
[2019-02-21] MEDS ORDERED: DIGOXIN 250 MCG/ML 2 ML AMP IVP SCH (18:00)
[2019-02-21 18:03] VITALS: BP 97/39
[2019-02-21] MEDS: NOREPINEPHRINE 4 MG in SODIUM CHLORIDE 0.9% 250 ML IV SCH ×2 (18:10→20:30)
--- NOTE | 2019-02-21 18:12 | XR ---
EXAMINATION: XR chest 1V portable DATE AND TIME: 02/21/2019 6:02 PM CLINICAL INDICATION: ET tube placement, OGT placement TECHNIQUE: AP semiupright portable COMPARISON: 02/21/2019 at 4:08 PM FINDINGS: Since prior study the patient has been intubated with ET tube tip superimposed over the mid trachea. Also, an NG tube is in place, with the NG tube coursing over the expected position of the thoracic es ophagus and stomach and with its tip projecting caudal to this radiograph. LUNG INFLATION PATTERN: This has worsened in the interim with interstitial and alveolar phase pulmona ry edema evident in the upper and midlung zones presently. The bilateral pleural effusions and atelec tasis of the bilateral lower lobes and right middle lobe are redemonstrated. No evidence of pneumothorax. IMPRESSION: POST-INTUBATION CHEST RADIOGRAPH, ABOVE.
[2019-02-21] MEDS ORDERED: SODIUM BICARB 8.4% 50 ML SYR (1 MEQ/ML) IV ONE (18:17)
[2019-02-21 19:04] VITALS: RESP 18
[2019-02-21 19:27] LABS: Albumin 3.1 g/dL (3.5-5.0); Calcium 8.5 mg/dL (8.4-10.2); Potassium 4.9 mmol/L (3.5-5.1); Total Bilirubin 3.5 mg/dL (0.2-1.3); Total Protein 6.7 g/dL (6.3-8.2)
--- NOTE | 2019-02-21 20:20 | P.DS ---
Providers Date of admission: 02/20/19 22:43 Expected date of discharge: 02/21/19 Attending physician: Chencho Zhang MD Consults: 02/20/19 22:39 Consult Physician Stat Consulting Provider: [facility] Consult Reason/Comments: ICU Do you want consulting provider notified?: Already Contacted 02/20/19 22:42 Consult Physician Urgent Consulting Provider: [facility] Consult Reason/Comments: new a flutter Do you want consulting provider notified?: Yes Primary care physician: Stated None Hospital Course: Discharge Diagnosis: Bilateral pneumonia with bilateral pleural effusions right greater than left Acute exacerbation of systolic congestive heart failure ejection fraction 20-25% Atrial flutter with rapid ventricular response status post cardioversion, subsequent SVT not responsive to adenosine Acute hypoxic respiratory failure secondary to above and requiring intubation Gross hematuria Cutaneous candidiasis of pannus Morbid obesity Social stressor of no insurance Hospital Course: Patient is a 53-year-old female with no known past medical history she has not been seeing physicians who initially presented to [facility] secondary to shortness of breath and cough. I requested she underwent an extensive evaluation. She was found to have tachycardia and her EKG was co nsistent with atrial flutter with a 2-1 conduction at a rate of 160. She was also found to be hypoxic and was subsequently started on BiPAP therapy. Chest x-ray indicated CHF with bilateral pleural effusions right greater than left. She subsequently underwent a CT of the chest was negative for PE but did show significant multilobar pneumonia. She was started on DuoNeb's, Cardizem bolus followed by a drip, and Solu-Medrol. Laboratory analysis showed an elevated BNP, INR 1.4, white blood cell count 16.5, lactic acid of 3.2, and remainder of lab work was unremarkable. Due to her already at condition and need for BiPAP therapy she was subsequently transferred to [facility]. She is seen by critical care and admitted to the ICU. She was started on DuoNeb therapy, IV Lasix, heparin drip, and IV steroids. She was also given a dose of Levaquin and Zosyn. Patient remianed on BiPAP. She remained tachycardic overnight despite the use of IV Cardizem and she was transitioned to IV amiodarone. She was seen by cardiology on the morning of 02/21. They planned cardioversion secondary to atrial flutter not responsive to medication. Echocardiogram showed ejection fraction 20-25%, she subsequently underwent a BUSHRA which showed no evidence of thrombus. She then underwent synchronized cardioversion with 360 J she converted to normal sinus rhythm and then SVT. Secondary to her SVT. See 2 rounds of adenosine. She was loaded with digoxin and her amiodarone drip was continued. She returned to normal sinus rhythm. She then became acutely dyspneic and required being placed back on BiPAP. She did not have adequate response to BiPAP therapy and was subsequently intubated. After this cardiology arranged transfer to [facility] to the cardiac ICU. All arrangements were made via cardiology. I was contacted by nursing and informed of the patient was being transferred. Phical exam as per prognosis note same date. A total of 37 minutes of time were spent preparing this complex discharge summary . Pertinent Studies: Echocardiogram-ejection fraction 20-25% BUSHRA-no LV thrombus CT of the chest-no evidence of PE Chest q-dxo-kjikrdjze pleural effusions and bilateral airspace disease Procedures: Cardioversion Intubation Patient Condition at Discharge: Critical Plan - Discharge Summary Discharge Rx Participant: Yes New Discharge Prescriptions: No Action No Known Home Medications Discharge Medication List No Known Home Medications 02/20/19 [History] Follow up Appointment(s)/Referral(s): Fran Dos Santos DO [REFERRING] - 1-2 Days (This would be a new patient appointment also.)
[2019-02-21] MEDS ORDERED: SODIUM CHLORIDE 0.9% 500 ML 500 ML IV ONE (20:24)
[2019-02-21] MEDS ORDERED: PROPOFOL 1,000 MG in EMPTY BAG 1 BAG IV SCH (20:30)
[2019-02-21 20:40] VITALS: PULSE 81; TEMP 98
[2019-02-21] MEDS ORDERED: AMIODARONE 200 MG TAB PO SCH (21:00)
[2019-02-21] MEDS ORDERED: CHLORHEXIDINE GLUCONATE 15 ML CUP MUCOUS MEM SCH (21:00)
[2019-02-22] MEDS ORDERED: LEVOFLOXACIN 750MG-D5W PMX 750 MG in DEXTROSE/WATER 1 150ML.BAG IVPB SCH
--- NOTE | 2019-02-23 09:33 | CDI ---
Documentation Clarification Form Date: 02/23/19 From: Nedra Vázquez Phone: If you have a question regarding this query please contact Brigid Maharaj at [phone]- 8am to 5pm. Admit Date: 02/20/2019 10:43:00 PM Patient Name: Abbie Palmer Visit Number: [id number] Discharge Date: 02/21/2019 9:25:00 PM ATTENTION: The Clinical Documentation Specialists (CDI) and [facility] Coding Staff appreciate your assistance in clarifying documentation. Please respond to the clarification below the line at the bottom and electronically sign. The CDI & [facility] Coding staff will review the response and follow-up if needed. Please note: Queries are made part of the Legal Health Record. If you have any questions, please contact the author of this message via ITS. Dr. Charlene Palacios The patient presented with cough, shortness of breath and pneumonia. H&P stated admit with acute respiratory failure multifactorial etiology secondary to sepsis due to community acquired pneumonia superimposed on likely acute CHF exacerbation. History/Risk Factors: Patient presented to another hospital for above symptoms and was also found to be in a-fib/flutter. The patient has a history of CHF, cardiomyopathy, morbid obesity and a history of previous pneumonia. Clinical Indicators: Elevated WBCs, elevated heart rate WBC: 15,7 Lactic acid: Not tested Blood cultures: No growth Vitals signs on admission: T. 98.2, P. 151, R. 35, BP 149.101 Antibiotics: IV Levofloxacin IV Bolus: 500 mls In your professional opinion, please clarify if these findings signify one of the following conditions: Sepsis ruled out SIRS, without underlying infectious process Sepsis Severe Sepsis Septic Shock Other, please specify Unable to determine Sepsis_ MTDD
--- NOTE | 2019-02-23 09:45 | CDI ---
Documentation Clarification Form Date: 02/23/19 From: Nedra Vázquez Phone: If you have a question regarding this query, please contact Brigid Maharaj at [phone] between 8am and 5pm. Admit Date: 02/20/2019 10:43:00 PM Patient Name: Abbie Palmer Visit Number: [id number] Discharge Date: 02/21/2019 9:25:00 PM ATTENTION: The Clinical Documentation Specialists (CDI) and [facility] Coding Staff appreciate your assistance in clarifying documentation. Please respond to the clarification below the line at the bottom and electronically sign. The CDI & [facility] Coding staff will review the response and follow-up if needed. Please note: Queries are made part of the Legal Health Record. If you have any questions, please contact the author of this message via ITS. Dr. Lourdes Stephens Atrial Flutter is documented in your consult note, H&P, ED note, pulmonary consult note, discharge summary and both progress notes. History/Risk factors: Patient presented to another hospital with cough, shortness of breath and pneumonia. The patient was noted to be in a. fib/flutter with a 2-1 conduction with a rate of 160 and was transferred to [place]. Clinical Indicators: Elevated heart rate, shortness of breath EKG/telemetry: Consistent with atrial flutter per your consult note. Treatment: IV Cardizem that was transitioned to IV amiodarone. Patient also had cardioversion on 02/21. In your professional opinion, in order to capture the severity of condition; can you please clarify the type of Atrial Flutter if known? Typical/Type I Atypical/Type II Other, please specify Unable to determine Typical/Type I MTDD
--- NOTE | 2019-02-23 09:55 | CDI ---
Documentation Clarification Form Date: 02/23/19 From: Nedra Vázquez Phone: If you have a questions regarding this query, please contact Brigid Maharaj at [phone] between 8am and 5pm. Admit Date: 02/20/2019 10:43:00 PM Patient Name: Abbie Palmer Visit Number: [id number] Discharge Date: 02/21/2019 9:25:00 PM ATTENTION: The Clinical Documentation Specialists (CDI) and [facility] Coding Staff appreciate your assistance in clarifying documentation. Please respond to the clarification below the line at the bottom and electronically sign. The CDI & [facility] Coding staff will review the response and follow-up if needed. Please note: Queries are made part of the Legal Health Record. If you have any questions, please contact the author of this message via ITS. Dr. Charlene Palacios Atrial Fibrillation is documented in the cardiology consult note, the H&P, ED note and in the pulmoanry consult note. History/Risk factors: Patient presented to another hospital with cough, shortness of breath and pneumonia. The patient was noted to be in a. fib/flutter with a 2-1 conduction with a rate of 160 and was transferred to [place]. Patient has a history of CHF, pulmonary hypertension and cardiomyopathy. Clinical Indicators: Elevated heart rate, shortness of breath EKG/telemetry: Consistent with atrial flutter per cardiology consult note. Cardioversion Note: Atrial flutter with rapid ventricular rate and cardiomyopathy. Treatment: IV Cardizem that was transitioned to IV amiodarone. Patient also had cardioversion on 02/21. In your professional opinion, can you please clarify the Atrial Fibrillation diagnosis, if known? Atrial Fib Ruled Out Chronic/Permanent Paroxysmal Persistent Other, please specify Unable to determine A fib ruled out found to be A flutter as documented in Discharge summary, also documented as A flutter not A fib in cardio consult impression. MTDD
== END 2019-02-21 21:25 | disposition short-term general hospital (02) | DRG 871 ==
LOC: EC 21:51 → 2SICU 22:43
PROVIDERS: ADMIT Family Medicine; ATTEND Family Medicine
PROC: B245ZZ4 Ultrasonography of Left Heart, Transesophageal (ICD-10-PCS; 2019-02-21)
PROC: 5A2204Z Restoration of Cardiac Rhythm, Single (ICD-10-PCS; principal; 2019-02-21 13:45)
DX: A41.9 Sepsis, unspecified organism (principal); I50.23 Acute on chronic systolic (congestive) heart failure; J96.01 Acute respiratory failure with hypoxia; J18.9 Pneumonia, unspecified organism; E87.1 Hypo-osmolality and hyponatremia; J98.11 Atelectasis; Z68.44 Body mass index [BMI] 60.0-69.9, adult; I48.3 Typical atrial flutter; I27.21 Secondary pulmonary arterial hypertension; E66.01 Morbid (severe) obesity due to excess calories; I44.1 Atrioventricular block, second degree; B37.2 Candidiasis of skin and nail; G47.30 Sleep apnea, unspecified; R31.0 Gross hematuria; Z87.01 Personal history of pneumonia (recurrent); Z88.5 Allergy status to narcotic agent; Z88.0 Allergy status to penicillin; Z91.030 Bee allergy status; Z91.040 Latex allergy status
CPT/HCPCS: 36600; 71045; 80048; 80053; 81001; 82805; 83605; 83735; 84484; 85025; 85610; 85730; 87040; 93306; 93312; 93320; 93325; 94002; 94640; 94660; 96365; 96366; 96368; 96376; 99291